=== PATIENT | female | born 1990 | race Hispanic/Latino ===

== ENCOUNTER 2017-06-01 05:59 | Day surgery (SDC) | payer BC ==
[~2017-06-01 05:59] MED LIST: MARCAINE 0.25% INFILTRATI ONE; NACL 0.9% IR ONE
[2017-06-01] MEDS ORDERED: MARCAINE 0.25% INFILTRATI ONE ×2 (07:21→09:02)
--- NOTE | 2017-06-01 07:22 | Short Stay Summary ---
Short Stay Documentation Date of service: 06/01/17 Narrative H&P: Patient is a 26 year old female who presents with complaint of 2 months of intermittent pelvic pain, dyspareunia and cramping. Patient had cultures and testing in office, all of which were negative. - History Principal diagnosis: pelvic pain Past Medical History: No medical history Past Surgical History: No surgical history Social history: - Allergies and Medications Current Medications: Allergies benzonatate [From Tessalsidney Perlbo] Allergy (Verified 05/30/17 07:43) rash, itching hydrocodone Allergy (Verified 05/30/17 07:43) rash, itching - Physical exam General appearance: no acute distress Integumentary: no rash, no growths, no abnormal pigmentation Lungs: Clear to auscultation, Normal air movement Heart: Regular rate, Normal S1, Normal S2 Gastrointestinal: normal, normoactive bowel sounds Female Genitourinary: deferred Rectal Exam: deferred Extremities: no ischemia, No edema, normal temperature, normal color - Brief post op/procedure progress note Date of procedure: 06/01/17 Pre-op diagnosis: pelvic pain Post-op diagnosis: same Procedure: Diagnostic laparoscopy with right salpingectomy Anesthesia: GETA Findings: Cystic right fallopian tubes, dilated right ureter with hypermobility Surgeon: WANDA DIALLO Estimated blood loss: minimal Pathology: list (right fallopian tube) Specimen disposition: to lab Condition: stable - Hospital course Hospital course: unremarkable - Disposition Condition at discharge: Good Disposition: DC-01 TO HOME OR SELFCARE Short Stay Discharge Plan Activity: advance as tolerated Weight Bearing Status: Non-Weight Bearing Diet: regular Wound: open to air Prescriptions: Ibuprofen [Motrin] 800 mg PO Q8HR PRN #40 tablet PRN Reason: Pain oxyCODONE /ACETAMINOPHEN [Percocet 5/325] 1 tab PO Q4HR #30 tab
--- NOTE | 2017-06-01 07:38 | Anesthesia Consultation ---
Anesthesia Consult and Med Hx Date of service: 06/01/17 - Airway Anesthetic Teeth Evaluation: Good ROM Head & Neck: Adequate Mental/Hyoid Distance: Adequate Mallampati Class: Class I Intubation Access Assessment: Good - Pulmonary Exam CTA: Yes - Cardiac Exam Cardiac Exam: RRR - Pre-Operative Health Status ASA Pre-Surgery Classification: ASA2 Proposed Anesthetic Plan: General - Pulmonary Hx Smoking: Yes (former) - Central Nervous System Hx Seizures: Yes (with eeclampsia hx) Hx Back Pain: Yes - Gastrointestinal Hx Gastroesophageal Reflux Disease: Yes (occas) - Other Systems Hx Alcohol Use: Yes (occas)
--- NOTE | 2017-06-01 07:38 | Anesthesia Day of Surgery ---
Anesthesia Day of Surgery - Day of Surgery Patient Examined: Yes Patient H&P Reviewed: Yes Patient is NPO: Yes
[2017-06-01] MEDS ORDERED: NACL 0.9% 1000 ML 1,000 ML ONE (07:44)
[2017-06-01] MEDS ORDERED: SUBLIMAZE ONE (07:54)
[2017-06-01] MEDS ORDERED: XYLOCAINE MPF 2% ONE (07:54)
[2017-06-01] MEDS ORDERED: ZEMURON IV ONE (07:54)
[2017-06-01] MEDS ORDERED: DIPRIVAN 10 MG/ML IV ONE (07:55)
[2017-06-01] MEDS ORDERED: PEPCID PO NR (08:00)
[2017-06-01] MEDS ORDERED: ANCEF/STERILE WATER 2 GM/20 ML 2 GM/20 ML SYRINGE IV NR (08:00)
[2017-06-01] MEDS ORDERED: LACTATED RINGERS 1,000 ML IV SCH (08:00)
[2017-06-01] MEDS ORDERED: VERSED IV NR (08:00)
[2017-06-01] MEDS ORDERED: DECADRON ONE (09:02)
[2017-06-01] MEDS ORDERED: ZOFRAN ONE (09:02)
[2017-06-01] MEDS ORDERED: NEOSTIGMINE ONE (09:03)
[2017-06-01] MEDS ORDERED: ROBINUL ONE (09:03)
[2017-06-01] MEDS ORDERED: NACL 0.9% IR ONE (09:06)
[2017-06-01] MEDS ORDERED: DILAUDID ONE ×2 (09:17→09:31)
[2017-06-01] MEDS ORDERED: TORADOL ONE (09:25)
[2017-06-01] MEDS: DILAUDID IV PRN ×3 (09:30→10:00)
[2017-06-01] MEDS ORDERED: DILAUDID IV PRN (09:30)
[2017-06-01] MEDS ORDERED: BENADRYL IV PRN (10:30)
[2017-06-01] MEDS ORDERED: TRANSDERM-SCOP TD PRN (11:00)
[2017-06-01] MEDS ORDERED: ZOFRAN IV PRN (11:00)
[2017-06-01] MEDS ORDERED: DEMEROL IV PRN (11:00)
[2017-06-01 11:28] VITALS: BP 107/64
--- NOTE | 2017-06-15 15:05 | Operative Report ---
Operative Report Operative Report: This is an operative report for patient Barbara Barba Preoperative diagnosis: Right-sided pelvic pain Post operative diagnosis: Same with right tubal cyst and hyperactive and dilated right ureter Procedure: Diagnostic laparoscopy, right salpingectomy Surgeon: Arlette Lei M.D. Anesthesia: Gen. EBL: Minimal IV fluids: 1000 mL Urine output 100 mL clear at the beginning of the procedure The patient was taken to the OR with IV running and in place. She had been properly identified as herself. She was given general anesthesia without difficulty. She was then placed in the dorsal lithotomy position and prepped and draped in the normal sterile fashion. Attention was turned to the patient' s vagina. Her bladder was drained of approximately 100 mL of clear urine. Following this, a speculum was placed in the patient's vagina. The cervix was visualized and grasped with a single-tooth tenaculum. Was then gently sounded to approximately 8 cm. An acorn cannula was placed in the cervix to be able to manipulate the uterus. Surgeon's gloves were then changed and the speculum was removed. And attention was turned to the patient's abdomen: a small incision was made in the umbilicus, through this incision a 5 mm port was placed. The abdomen was insufflated with CO2 gas up to approximately 20 mmHg . The laparoscope confirmed intra-abdominal placement. An incision was made in the patient's left lower quadrant and the port was placed under direct visualization. Survey of the abdomen and pelvis revealed normal anatomy except for a cyst on the right tube consistent with a hydrosalpinx and a hypermobile slightly dilated right ureter. Using the LigaSure the tube was crossclamped and cauterized close to the cornua. The area underneath the tube was also crossclamped and cauterized. The tube was then delivered out through the left incisional port. Then it was noted that the right ureter was extremely dilated and hypermobile. There were no other abnormalities noted. At this point the decision was made to end the procedure. The abdomen was deflated and all instruments removed from the patient's abdomen. The incisions were closed with 3-0 Monocryl. The sponge needle and instrument counts were correct 2. The patient tolerated the procedure well and was taken recovery in stable condition.
== END 2017-06-01 11:37 | disposition home or self-care (01) ==
LOC: OR 05:59
PROVIDERS: ATTEND Obstetrics & Gynecology
DX: N83.8 Other noninflammatory disorders of ovary, fallopian tube and broad ligament (principal); N28.82 Megaloureter; K21.9 Gastro-esophageal reflux disease without esophagitis; Z87.891 Personal history of nicotine dependence; Z88.8 Allergy status to other drugs, medicaments and biological substances; Z88.5 Allergy status to narcotic agent
CPT/HCPCS: 58661; 81025; 88112; 88305; J0690; J1100; J1170; J1200; J1885; J2175; J2250; J2405; J2704; J2710; J3010; J7030; J7120; 88302